=== PATIENT | female | born 1960 | race Caucasian/White ===

== ENCOUNTER 2023-04-13 13:34 | Outpatient (OUT) | payer BC, SELFPAY ==
--- NOTE | 2023-04-13 14:18 | CA_ITS ---
Patient Name: TIFF KWOK MR#: [id number] : 1960 Exam Date: 04/13/2023 Ordering Doctor: NIEVES RIVAS ECHOCARDIOGRAM REPORT PROCEDURE: CA ECHO DOPPLER COMPLETE INDICATIONS: Mild MR and TR COMPARISON: None. DESCRIPTION: COMPLETE ECHOCARDIOGRAM Real-time transthoracic echocardiography with 2D, M-mode, spectral and color flow Doppler performed. QUALITY: Technical quality was good. LEFT VENTRICLE: Normal chamber size. Normal left ventricular wall thickness. LV EF: Global left ventricular systolic function is normal. Calculated left ventricular ejection fraction is 63% DIASTOLIC: Normal diastolic function. ATRIAL SEPTUM: Inadequately seen. LEFT ATRIUM: Normal chamber size. RIGHT ATRIUM: Normal chamber size. RIGHT VENTRICLE: Normal chamber size. Normal right ventricular systolic function. TRICUSPID VALVE: Normal mobility and thickness. Mild regurgitation. No evidence of pulmonary hypertension. RVSP 30mmHg MITRAL VALVE: Normal mobility and thickness. No evidence of mitral valve stenosis. There is no mitral annular calcification. Trivial mitral regurgitation. AORTIC VALVE: Normal trileaflet appearance. No visible sclerosis. Normal leaflet mobility. No evidence of aortic valve stenosis. No aortic regurgitation. AORTIC ROOT: Normal diameter and appearance. PULMONIC VALVE: Normal thickness and mobility. No stenosis. Trivial regurgitation. PERICARDIUM: No evidence of pericardial effusion. IVC: Collapses with inspirations. Normal size. CONCLUSION: 1. Global left ventricular systolic function is normal; visually estimated ejection fraction is 60 to 65% 2. The right ventricle is normal in size and systolic function 3. Normal diastolic function 4. Mild tricuspid regurgitation Adult Echocardiography Procedure Report Left Ventricle LVEDD (3.7 - 5.6 cm): 3.98 cm LVESD (2.2 - 4.0 cm): 2.57 cm LVIVS thickness (0.6 - 1.2 cm): 0.88 cm LVPW thickness (0.5 - 1.0 cm): 0.99 cm e': 0.09 m/s E - e': 6.92 LVOT Max Gradient: 3.24 mm[Hg] LVOT Area (cm2): 0.90 m/s Peak Velocity (LVOT): 0.90 m/s Mean Velocity (LVOT): 0.61 m/s LVOT Diameter 1.78 cm Left Ventricular Ejection Fraction: 63.11 % Left Atrium LA Volume Index (2D A2C): 25.87 ml/m2 Left Atrium Systolic Dimension: 2.90 cm Mitral Valve MV E to A Ratio: 0.80 Mitral Valve A-Wave Peak Velocity: 0.74 m/s Mitral Valve E-Wave Peak Velocity: 0.60 m/s Right Ventricle RV Internal Diastolic Dimension: 3.24 cm Aorta AO Root Diam: 2.94 cm Ascending Ao Diam: 2.61 cm Aortic Valve AoV Area (Peak Slick): 1.52 cm2, 1.52 cm2 AoV Area (VTI): 1.48 cm2, 1.48 cm2 Peak Velocity(Antegrade Flow): 1.47 m/s Peak Gradient(Antegrade Flow): 8.61 mm[Hg] Mean Velocity(Antegrade Flow): 0.95 m/s Mean Gradient(Antegrade Flow): 4.14 mm[Hg] Velocity Time Integral: 32.12 cm Tricuspid Valve Peak Velocity (Regurgitant Flow): 1.85 m/s, 1.97 m/s, 2.60 m/s Pulmonic Valve Mean Gradient: 1.42 mm[Hg], 1.52 mm[Hg] Mean Velocity: 0.56 m/s, 0.58 m/s Peak Velocity: 0.88 m/s Peak Gradient: 2.87 mm[Hg], 3.35 mm[Hg] Right Atrium Right Atrium Systolic Pressure: 38.68 ml, 38.68 ml Dictated by: Nhan Guadarrama M.D. on 04/18/2023 at 11:08 Approved by: Nhan Guadarrama M.D. on 04/18/2023 at 11:12
== END 2023-04-13 13:35 | disposition home or self-care (01) ==
LOC: CARD 13:35
PROVIDERS: Visit Provider Nurse Practitioner
DX: I34.0 Nonrheumatic mitral (valve) insufficiency (principal); I07.1 Rheumatic tricuspid insufficiency
CPT/HCPCS: 93306